=== PATIENT | female | born 1985 | race Caucasian/White ===

== ENCOUNTER 2018-04-09 19:57 | Emergency (ER) | payer OTHER ==
--- NOTE | 2018-04-09 20:02 | PDOC ---
History of Present Illness - General History Source: Patient, Family Exam Limitations: No Limitations - History of Present Illness Initial Comments: 04/09/18 20:12 The patient is a 32 year old female, with a significant PMH of anxiety and pulmonary valvular stenosis, who presents to the emergency department complaining of her heart racing. The patient states she woke up this morning endorsing associated symptoms of sore throat, dry cough, body aches and panic attacks. She reports taking 3 Xanax today and notice no relief. She also mentions she came back from [place] today. The patient denies chest pain, shortness of breath, headache and dizziness.Denies fever, chills, nausea, vomit , diarrhea and constipation. Allergies: NKDA Past surgical history: None reported Social history: None reported PCP: None reported <Michelle Johnson - Last Filed: 04/09/18 20:12> <Clemente Luciano - Last Filed: 04/10/18 03:36> - General Chief Complaint: Pain, Acute Stated Complaint: SORE THROAT,DRY COUGH FEVER HEART RACING Time Seen by Provider: 04/09/18 20:02 Past History <Michelle Johnson - Last Filed: 04/09/18 20:12> <Clemente Luciano - Last Filed: 04/10/18 03:36> - Past Medical History Allergies/Adverse Reactions: Allergies Allergy/AdvReac Type Severity Reaction Status Date / Time No Known Allergies Allergy Verified 04/09/18 19:59 Home Medications: Ambulatory Orders Alprazolam [Xanax] 0.25 mg PO PRN 04/09/18 Review of Systems - Review of Systems Able to Perform ROS?: Yes Comments:: 04/09/18 20:13 GENERAL/CONSTITUTIONAL: No fever or chills. No weakness. HEAD, EYES, EARS, NOSE AND THROAT:+Sore throat. No change in vision. No ear pain or discharge. CARDIOVASCULAR:+Palpitation. No chest pain or shortness of breath. RESPIRATORY: +dry cough. No wheezing, or hemoptysis. GASTROINTESTINAL: No nausea, vomiting, diarrhea or constipation. GENITOURINARY: No dysuria, frequency, or change in urination. MUSCULOSKELETAL: No joint or muscle swelling or pain. No neck or back pain. SKIN: No rash NEUROLOGIC: No headache, vertigo, loss of consciousness, or change in strength/ sensation. ENDOCRINE: No increased thirst. No abnormal weight change. HEMATOLOGIC/LYMPHATIC: No anemia, easy bleeding, or history of blood clots. ALLERGIC/IMMUNOLOGIC: No hives or skin allergy. <Michelle Johnson - Last Filed: 04/09/18 20:12> *Physical Exam - Vital Signs Last Vital Signs Temp Pulse Resp BP Pulse Ox 101.5 F H 128 H 18 142/86 100 04/09/18 20:00 04/09/18 20:00 04/09/18 20:00 04/09/18 20:00 04/09/18 20:00 - Physical Exam Comments: 04/09/18 20:14 GENERAL: Awake, alert, and fully oriented, in no acute distress HEAD: No signs of trauma EYES: PERRLA, EOMI, sclera anicteric, conjunctiva clear ENT: Auricles normal inspection, hearing grossly normal, nares patent, oropharynx clear without exudates. Moist mucosa NECK: Normal ROM, supple, no lymphadenopathy, JVD, or masses LUNGS: Breath sounds equal, clear to auscultation bilaterally. No wheezes, and no crackles HEART:+Tachycardic. Normal S1 and S2, no murmurs, rubs or gallops ABDOMEN: Soft, nontender, normoactive bowel sounds. No guarding, no rebound. No masses EXTREMITIES: Normal range of motion, no edema. No clubbing or cyanosis. No cords, erythema, or tenderness NEUROLOGICAL: Cranial nerves II through XII grossly intact. Normal speech, normal gait SKIN: Warm, Dry, normal turgor, no rashes or lesions noted. <Michelle Johnson - Last Filed: 04/09/18 20:12> Moderate Sedation - Procedure Monitoring Vital Signs: Procedure Monitoring Vital Signs Temperature 101.5 F H 04/09/18 20:00 Pulse Rate 128 H 04/09/18 20:00 Respiratory Rate 18 04/09/18 20:00 Blood Pressure 142/86 04/09/18 20:00 O2 Sat by Pulse Oximetry (%) 100 04/09/18 20:00 <Michelle Johnson - Last Filed: 04/09/18 20:12> Heart Score/ECG Review - ECG Impressions Comment:: 04/09/18 20:14 Sinus rhythm 122 Normal axis. Normal interval. No ischemic findings. <Michelle Johnson - Last Filed: 04/09/18 20:12> Medical Decision Making - Medical Decision Making 04/10/18 03:34 recurrent tachycardia, hernández negative now presents tachycardic in setting of febrile illness recent travel, ?PE: No stigmata of this on EKG or LE exam, and no cp or dyspnea ? SBI--symptoms are constent with viral infection, no source on pe, and no bacteremia rfs d/w pt inpt obs versus outpt obs--she prefers latter. symptomatic rx, return to ED for worsening or persistence of tachycardia <Clemente Luciano - Last Filed: 04/10/18 03:36> *DC/Admit/Observation/Transfer - Attestations Scribe Attestion: 04/09/18 20:16 Documentation prepared by Michelle Johnson, acting as medical director/head team physician for Clemente Luciano MD. <Michelle Johnson - Last Filed: 04/09/18 20:12> <Clemente Luciano - Last Filed: 04/10/18 03:36> Diagnosis at time of Disposition: Viral illness - Discharge Dispostion Disposition: HOME Condition at time of disposition: Stable - Referrals Referrals: Jodie Mcclelland MD [Staff Physician] - 2 Days - Patient Instructions Printed Discharge Instructions: DI for Tachycardia Additional Instructions: Please follow-up with a primary care physician for continuing care
[2018-04-09 20:05] VITALS: BP 142/86; PULSE 128; TEMP 101.5; BMI 45.7
--- NOTE | 2018-04-11 14:00 | EKG ---
Test Reason : Blood Pressure : / mmHG Vent. Rate : 122 BPM Atrial Rate : 122 BPM P-R Int : 156 ms QRS Dur : 082 ms QT Int : 314 ms P-R-T Axes : 073 031 118 degrees QTc Int : 447 ms SINUS TACHYCARDIA CANNOT RULE OUT ANTERIOR INFARCT , AGE UNDETERMINED MARKED ST ABNORMALITY, POSSIBLE LATERAL SUBENDOCARDIAL INJURY ABNORMAL ECG NO PREVIOUS ECGS AVAILABLE Confirmed by MD Christiano, Fer ([id number]) on 04/11/2018 2:00:03 PM Referred By: JOE HARRIS Confirmed By:Fer Alvarado MD
== END 2018-04-09 20:32 | disposition home or self-care (01) ==
LOC: FER 19:57
DX: B34.9 Viral infection, unspecified (principal); I37.0 Nonrheumatic pulmonary valve stenosis; F41.9 Anxiety disorder, unspecified
CPT/HCPCS: 93005; 99281-25